=== PATIENT | male | born 1990 | race Caucasian/White ===

== ENCOUNTER 2016-12-15 19:04 | Emergency (ER) ==
[2016-12-15 19:07] VITALS: TEMP 98.6; BMI 26.4
[2016-12-15] MEDS ORDERED: LIDOCAINE HCL 1% SDV SUBCUT STA (19:15)
[2016-12-15 19:49] VITALS: BP 136/80
--- NOTE | 2016-12-15 19:50 | ED.PDOC ---
General ED Provider: Dr. ANU OTTO Chief Complaint: Non-specific Complaint Stated Complaint: patient states he caught a fish and it popped the hook out of it's mouth and the lure hit him in the back of his head. one kenzie of a treble hook imbedded in back of patient's head. Time Seen by Physician: 19:20 Mode of Arrival: Walk-In Information Source: Patient Exam Limitations: No limitations Primary Care Provider: CECILIO PANTOJA Nursing and Triage Documentation Reviewed and Agree: Yes Skin Complaint Exam - Laceration/Head/Facial Complaint/Exam Location of Injury: Scalp Mechanism of Injury: Sharp trauma Onset/Duration: just prior to arrival Symptoms Are: Still present Initial Severity: Moderate Current Severity: Moderate Aggravating: Movement Head Picture: 1 - Fish hook Differential Diagnoses: Foreign Body Review of Systems - Review Of Systems Constitutional: Reports: No symptoms Eyes: Reports: No symptoms Ears, Nose, Mouth, Throat: Reports: No symptoms Respiratory: Reports: No symptoms Cardiac: Reports: No symptoms GI: Reports: No symptoms : Reports: No symptoms Musculoskeletal: Reports: No symptoms Skin: Reports: Bruising Neurological: Reports: Anxiety Endocrine: Reports: No symptoms Hematologic/Lymphatic: Reports: No symptoms All Other Systems: Reviewed and Negative Past Medical History - Past Medical History Previously Healthy: Yes Endocrine: Reports: None Cardiovascular: Reports: None Respiratory: Reports: None Hematological: Reports: None Gastrointestinal: Reports: None Genitourinary: Reports: None Neuro/Psych: Reports: None Musculoskeletal: Reports: None Cancer: Reports: None - Surgical History General Surgical History: Reports: Unknown - Family History Family History: Reports: Unknown - Social History Smoking Status: Current every day smoker, Heavy tobacco smoker Hx Substance Use: No Alcohol Screening: Occasionally - Immunizations Tetanus Shot up to Date: Yes (3 years ago) Physical Exam - Physical Exam Appearance: Well-appearing, No pain distress, Well-nourished Eyes: DREW, EOMI, Conjunctiva clear ENT: Ears normal, Nose normal, Oropharynx normal Respiratory: Airway patent, Breath sounds clear, Breath sounds equal, Respirations nonlabored Cardiovascular: RRR, Pulses normal, No rub, No murmur GI/: Soft, Nontender, No masses, Bowel sounds normal, No Organomegaly Musculoskeletal: Normal strength, ROM intact, No edema, No calf tenderness Skin: Warm, Dry, Normal color Neurological: Sensation intact, Motor intact, Cranial nerves intact, Alert, Oriented Psychiatric: Anxious Procedures - Foreign Body Removal Location of Foreign Object: scalp Foreign Object: Fish hook Depth of Object: 1 cm Type of Anesthesia: Local Medication Used: Yes: Lidocaine Prep: Betadine Irrigation: No Skin Incised: Yes Instruments Used: Yes: Forceps, Other (11 blade ) Foreign Body Identified and Removed: Yes (Fish hook ) Critical Care Note - Critical Care Note Total Time (mins): 0 Course - Course Orders, Labs, Meds: Orders Category Date Time Status Lidocaine HCl/Pf [Lidocaine HCl 1% Sdv] MEDS 12/15/16 19:15 Discontinued 5 ml SUBCUT ONCE STA Medications Discontinued Medications Generic Name Dose Route Start Last Admin Trade Name Freq PRN Reason Stop Dose Admin Lidocaine HCl 5 ml 12/15/16 19:15 12/15/16 19:28 Lidocaine Hcl 1% Sdv SUBCUT 12/15/16 19:16 5 ml ONCE STA Administration Vital Signs: Temp Pulse Resp BP Pulse Ox 12/15/16 19:49 104 H 136/80 12/15/16 19:05 98.6 F 141 H 20 156/92 H 97 Departure - Departure Time of Disposition: 19:47 Disposition: HOME SELF-CARE Discharge Problem: Fish hook injury of scalp Qualifiers: Encounter type: initial encounter Qualified Code(s): S09.90XA - Unspecified injury of head, initial encounter Instructions: Soft Tissue Foreign Body (ED) Condition: Fair Pt referred to PMD for follow-up: Yes Additional Instructions: Be careful with fish hook Keep wound clean and dry may apply Neosporin Follow up with PCP as needed Allergies/Adverse Reactions: Allergies No Known Allergies Allergy (Verified 12/15/16 19:07) Home Medications: Ambulatory Orders 1 [No Reported Medications] 08/10/13 Disposition Discussed With: Patient, Family
== END 2016-12-15 20:05 | disposition home or self-care (01) ==
LOC: ED 19:04
DX: S01.04XA Puncture wound with foreign body of scalp, initial encounter (principal); W45.8XXA Other foreign body or object entering through skin, initial encounter; F17.210 Nicotine dependence, cigarettes, uncomplicated
CPT/HCPCS: 99282